=== PATIENT | male | born 1955 | race Caucasian/White ===

== ENCOUNTER 2019-03-02 16:32 | Emergency (ER) | payer MEDICARE, SELFPAY ==
[2019-03-02 16:35] VITALS: BP 137/77; PULSE 63; RESP 17; TEMP 36; O2SAT 98; BMI 26.4
[2019-03-02 16:51] LABS: Bedside Glucose 37 mg/dL (70-110)
--- NOTE | 2019-03-02 17:00 | ED.RN ---
PT BG OBTAINED IN TRIAGE, CRITICAL LOW. PT PLACED INTO WHEELCHAIR AND IMMEDIATELY SENT BACK TO ROOM. NOAH Cruz RN NOTIFIED OF CRITICAL GLUCOSE LEVEL.
--- NOTE | 2019-03-02 17:03 | ED.DCSUM_ITS ---
- ER Visit Summary Date of Service: 03/02/19 Chief Complaint: Confusion and low blood sugar History of Present Illness: The patient is a 63 M who presents with confusion and hypoglycemia that occurred today. Family is unsure if the patient administered insulin today and did not eat. Family does not think the patient ate anything today. Family found the patient was more confused than usual. Patient does have a history of dementia. Blood sugar upon arrival to triage was 37. Patient was given a sandwich and juice. Patient is returning to his normal mental status. Physical Examination: Vital signs are stable. Patient is afebrile. Patient is in no acute distress. Oral mucosa is pink and moist. Neck is supple. Trachea is midline. There is no JVD noted. Heart was regular rate and rhythm. Lungs are clear and equal bilaterally. Abdomen is soft. Bowel sounds are normal. There is no tenderness. There is no guarding noted. Skin is warm dry. Cranial nerves II through XII are intact. There are no focal motor or sensory deficits noted. Test Results: Fingerstick blood sugar was 72 after eating a sandwich. Emergency Department Course and Treatment: Patient was feeling better on reevaluation. Repeat fingerstick blood sugar was 152. Patient was instructed to continue his regular diet. Patient was instructed to follow-up with his primary care physician in 5 to 7 days. Patient and family understood and were agreeable with the plan. All questions were answered. Disposition: Discharge home Impression: Hypoglycemia This note was generated with [employer] dictation software. It may contain incorrect words, spelling, and punctuation that were not noted in review of the chart prior to signing ED Disposition - Plan for ED Patient: Disposition: Home or Assisted Living Diagnosis: Hypoglycemia Instructions: Diabetic Insulin Reaction Referrals: Lc Peacock MD [Primary Care Provider] - 3-5 Days
[2019-03-02 17:10] LABS: Bedside Glucose 30 mg/dL (70-110)
[2019-03-02 17:33] LABS: Absolute Lymphocyte Count 1.62 X10^3/uL (0.83-4.51); Absolute Neutrophil Count 8.1 X10^3/uL (2.0-7.7); Basophil# 0.04 X10^3/uL; Basophil% 0.4 % (0-1); Eosinophil# 0.02 X10^3/uL; Eosinophils% 0.2 % (0-5); Hematocrit 49.9 % (40-54); Hemoglobin 15.9 g/dL (13.0-16.5); Lymphocyte # 1.62 X10^3/ul (4.0); Lymphocyte % 15.7 % (19-41); Mean Corp Hgb Conc 31.9 g/dL (32-36); Mean Corpuscular Hgb 25.1 pg (27.0-32.0); Mean Corpuscular Volume 78.7 fL (80-94); Mean Platelet Vol. 10.2 fl (6.2-12.0); Monocyte% 4.9 % (0-10); NRBC Flagged by Analyzer 0 % (0-5); Neutrophil # 8.06 X10^3/uL (2.7-7.7); Neutrophil % 78.3 % (47-70); Platelet Count 238 K/mm3 (150-450); RBC Distribution Width CV 15.9 % (11.6-14.6); RBC Distribution Width SD 43.1 fl (35.1-43.9); Red Blood Count 6.34 M/mm3 (4.6-6.2); White Blood Count 10.3 K/mm3 (4.4-11.0)
[2019-03-02 17:41] LABS: Bedside Glucose 72 mg/dL (70-110)
[2019-03-02 17:44] LABS: Anion Gap 4 (5-15); BUN 22 mg/dL (7-18); BUN/Creat Ratio 17.5 RATIO (10-20); Chloride 102 mmol/L (98-107); Creatinine, Serum 1.26 mg/dL (0.70-1.30); EST Glomerular Filtration Rate 61 mL/min (>60); Est Glom Filt Rate - Afr Amer 74 mL/min (>60); Estimated Creatinine Clearance 59.23 ml/min; Glucose 41 mg/dL (74-106); Potassium 3.5 mmol/L (3.5-5.1); Sodium Level 136 mmol/L (136-145)
--- NOTE | 2019-03-02 17:46 | NURSING ---
glucose 41. md aware.
[2019-03-02 18:19] VITALS: BP 143/54; PULSE 65; RESP 18; O2SAT 98
[2019-03-02 18:55] LABS: Bedside Glucose 158 mg/dL (70-110)
== END 2019-03-02 19:13 | disposition home or self-care (01) ==
PROVIDERS: Emergency Provider Emergency Medicine; Family Provider Internal Medicine; PCP Internal Medicine
DX: E11.649 Type 2 diabetes mellitus with hypoglycemia without coma (principal); F03.90 Unspecified dementia, unspecified severity, without behavioral disturbance, psychotic disturbance, mood disturbance, and anxiety; I10 Essential (primary) hypertension; Z79.4 Long term (current) use of insulin
CPT/HCPCS: 80048; 82962; 85025; 99283; A4216